=== PATIENT | female | born 1990 | race African-American/Black ===

== ENCOUNTER 2017-06-07 13:43 | Emergency (ER) | payer OTHER ==
[~2017-06-07] VITALS: Ht 175.3 cm; Wt 97.0 kg
[2017-06-07] MEDS ORDERED: DICYCLOMINE 10 MG/5 ML ORAL SYR PO STA (20:18)
[2017-06-07] MEDS ORDERED: SODIUM CHLORIDE 0.9% 1,000 ML IV ONE (20:18)
[2017-06-07] MEDS ORDERED: ONDANSETRON HCL 4MG/2ML VIAL IV STA (20:18)
[2017-06-07] MEDS ORDERED: KETOROLAC 30MG/ML VIAL IV STA (20:18)
[2017-06-07] MEDS ORDERED: MAGNESIUM/ALUMINUM HYDROXIDE/SIMETHICONE 30ML UDC PO STA (20:18)
[2017-06-07] MEDS ORDERED: VISCOUS LIDOCAINE 2% 15 ML UDC PO STA (20:18)
[2017-06-07 20:35] LABS: BASOPHILS % 0.5 % (0.0-2.0); HEMATOCRIT. 37.7 % (36.0-48.0); LYMPHOCYTES % 46.4 % (20.0-50.0); MEAN CORPUSCULAR HEMOGLOBIN 32.5 pg (28.0-32.0); MEAN CORPUSCULAR VOLUME 94.2 fL (81.0-99.0); MEAN PLATELET VOLUME 7.9 fl (7.4-10.4); MONOCYTES % 7.8 % (2.0-8.0); NEUTROPHILS % 44.3 % (40.0-76.0); PLATELET 260 x1000/uL (130-400); RED CELL DISTRIBUTION WIDTH 12.9 % (11.6-14.6)
[2017-06-07 20:44] LABS: PROTHROMBIN TIME 10.9 sec (9.4-11.6)
[2017-06-07 20:47] LABS: CARBON DIOXIDE 30 mEq/L (21-32); CHLORIDE 105 mEq/L (98-107)
[2017-06-07 21:20] LABS: CLARITY URINE CLEAR (CLEAR); COLOR URINE YELLOW (YELLOW); GLUCOSE URINE NEGATIVE (NEGATIVE); KETONES URINE NEGATIVE (NEGATIVE); LEUKOCYTE ESTERASE URINE NEGATIVE (NEGATIVE); NITRITE URINE NEGATIVE (NEGATIVE); OCCULT BLOOD URINE NEGATIVE (NEGATIVE); PROTEIN URINE NEGATIVE (NEGATIVE); SPECIFIC GRAVITY URINE 1.015 (1.005-1.030); UROBILINOGEN URINE 0.2 E.U./dL (0.2-1.0)
[2017-06-07 22:43] VITALS: BP 107/65
== END 2017-06-07 22:43 | disposition home or self-care (01) ==
LOC: ER 16:10
DX: R10.9 Unspecified abdominal pain (principal)
CPT/HCPCS: 36415; 80053; 81003; 83690; 85025; 85610; 96361; 96374; 96375; 99285; J1885; J2405; J7030; Z7610

== ENCOUNTER 2019-08-24 13:49 | Emergency (ER) | payer MEDICAID, OTHER ==
[~2019-08-24] VITALS: Ht 175.3 cm; Wt 90.0 kg
[2019-08-24] MEDS ORDERED: METHYLPREDNISOLONE SOD SUCC 125 MG/2 ML VIAL IV STA (16:21)
[2019-08-24] MEDS ORDERED: ALBUTEROL (0.083%) 2.5MG/3ML NEB HHN STA (16:21)
[2019-08-24] MEDS ORDERED: MAGNESIUM 2 G PREMIX 50 ML IV STA (16:21)
[2019-08-24] MEDS ORDERED: IPRATROPIUM BROMIDE (0.02%) 0.5MG/2.5ML NEB HHN STA (16:21)
[2019-08-24] MEDS ORDERED: SODIUM CHLORIDE 0.9% 1,000 ML IV ONE (16:21)
[2019-08-24] MEDS ORDERED: KETOROLAC 30MG/ML VIAL IV ONE (16:30)
[2019-08-24] MEDS ORDERED: ONDANSETRON HCL 4MG/2ML INJ IV ONE (16:45)
[2019-08-24 16:56] LABS: BASOPHILS % 0.2 % (0.0-2.0); HEMATOCRIT. 39.8 % (36.0-48.0); HEMOGLOBIN. 13.6 g/dL (12.0-16.0); LYMPHOCYTES % 7.1 % (20.0-50.0); MEAN CORPUSCULAR HEMOGLOBIN 31.6 pg (28.0-32.0); MEAN CORPUSCULAR VOLUME 92.7 fL (81.0-99.0); MEAN PLATELET VOLUME 7.7 fl (7.4-10.4); MONOCYTES % 7.1 % (2.0-8.0); NEUTROPHILS % 85.6 % (40.0-76.0); PLATELET 262 x1000/uL (130-400); RED BLOOD CELL COUNT 4.29 mill/uL (4.2-5.4); RED CELL DISTRIBUTION WIDTH 13.2 % (11.6-14.6)
[2019-08-24 17:03] LABS: CHLORIDE 104 mEq/L (98-107); INR 1.2
[2019-08-24 17:13] LABS: CREATINE KINASE 113 IU/L (26-192)
[2019-08-24 17:15] LABS: CREATINE KINASE MB FRACTION < 1.0 ng/mL (0.5-3.6)
[2019-08-24] MEDS ORDERED: PREDNISONE 20MG TABLET PO ONE (19:15)
[2019-08-24 19:43] LABS: CLARITY URINE CLEAR (CLEAR); COLOR URINE YELLOW (YELLOW); KETONES URINE 3+ (NEGATIVE); LEUKOCYTE ESTERASE URINE NEGATIVE (NEGATIVE); NITRITE URINE NEGATIVE (NEGATIVE); OCCULT BLOOD URINE NEGATIVE (NEGATIVE); PH URINE 8.5 (4.5-8.0); PROTEIN URINE NEGATIVE (NEGATIVE); SPECIFIC GRAVITY URINE 1.014 (1.005-1.030)
[2019-08-24 21:30] VITALS: BP 119/61
== END 2019-08-24 21:30 | disposition home or self-care (01) ==
LOC: ER 13:49
DX: J45.901 Unspecified asthma with (acute) exacerbation (principal); E87.8 Other disorders of electrolyte and fluid balance, not elsewhere classified
CPT/HCPCS: 36415; 71045; 80053; 81003; 81025; 82550; 82553; 83605; 83880; 84145; 84484; 85025; 85610; 87040; 87086; 87804; 93005; 94644; 96365; 96375; 99285; J1885; J2405; J2930; J3475; J7030; J7512; J7611; Z7610

== ENCOUNTER 2019-09-07 18:14 | Emergency (ER) | payer MEDICAID ==
[~2019-09-07] VITALS: Ht 172.7 cm; Wt 82.0 kg
[2019-09-07 20:15] VITALS: BP 118/72
== END 2019-09-07 20:24 | disposition home or self-care (01) ==
LOC: ER 18:14
DX: R10.84 Generalized abdominal pain (principal); Z53.29 Procedure and treatment not carried out because of patient's decision for other reasons; J45.909 Unspecified asthma, uncomplicated; Z86.711 Personal history of pulmonary embolism
CPT/HCPCS: 81025; 93005; 99283

== ENCOUNTER 2021-02-09 08:53 | Emergency (ER) | payer MEDICAID ==
[~2021-02-09] VITALS: Ht 172.7 cm; Wt 89.0 kg
[2021-02-09 11:18] VITALS: BP 122/60
== END 2021-02-09 11:21 | disposition home or self-care (01) ==
LOC: ER 08:53
DX: M25.531 Pain in right wrist (principal); W22.01XA Walked into wall, initial encounter; Y93.01 Activity, walking, marching and hiking; Y92.9 Unspecified place or not applicable; J45.909 Unspecified asthma, uncomplicated; Z87.01 Personal history of pneumonia (recurrent); Z86.711 Personal history of pulmonary embolism
CPT/HCPCS: 73110; 99283